=== PATIENT | male | born 1965 | race African-American/Black ===

== ENCOUNTER → 2021-05-01 | Outpatient (CLI) | payer BC ==
--- NOTE | 2021-05-02 12:31 | SLEEP ---
DATE OF STUDY: 05/02/2021 HOME SLEEP STUDY ATTENDING PHYSICIAN: Dr. James Sorto. The patient is 56 years old, who weighs 220 pounds with a BMI of 29. The patient's Olivia score was 8. The patient underwent home sleep study, performed by [facility]. Total recording time was 409 minutes. During the night study, the patient had 9 central apneas, 86 obstructive apneas, 15 mixed apneas and 17 hypopneas. The patient's AHI was 22.6 per hour. Nocturnal oximetry study revealed an average oxygen saturation of 94% with a lowest of 82%. No significant desaturation of less than 90% observed. Mean heart rate 52 beats per minute with a maximum of 102 beats per minute. IMPRESSION: 1. Moderate obstructive sleep apnea with an AHI of 22.6 per hour. 2. No significant nocturnal hypoxia. RECOMMENDATIONS: 1. The patient would benefit from treatment of sleep apnea with CPAP. 2. Once the patient is optimally treated with CPAP, then follow up in 4-6 weeks to assess compliance and to document clinical improvement. 3. Weight loss is strongly advised. 4. Avoid [employer] depressants. 5. Cautioned regarding driving until symptoms of sleep apnea resolve with CPAP. BLAINE DR: Veronica TID: [id number] CC: James Sorto Dr.
== END ==
LOC: RT 09:26
PROVIDERS: ATTEND Physician Assistant Medical
DX: G47.33 Obstructive sleep apnea (adult) (pediatric) (principal)
CPT/HCPCS: G0399